=== PATIENT | female | born 1965 | race Two or more races ===

== ENCOUNTER 2024-07-26 05:35 | Emergency (ER) | payer MEDICAID, SELFPAY ==
--- NOTE | 2024-07-26 05:38 | EKG_ITS ---
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
[2024-07-26 05:41] VITALS: BP 166/93; PULSE 65; RESP 18; TEMP 36.9; O2SAT 96
--- NOTE | 2024-07-26 05:52 | XR_ITS ---
Examination: CT brain head without contrast. 2-D sagittal coronal reconstructions Date and time of exam:July 26, 2024 at 0626 hrs. Indications: Generalized weakness beginning 3 days ago CTDI: vol (mGy):50.5 DLP: (mGycm):989 Technique: Multiple CT axial sections of the brain have been obtained, 5 mm slice thickness. Contrast has not been administered. 2-D sagittal, coronal reconstructions have been obtained Low dose protocols were performed. One or more of the following dose reduction techniques were used; automated exposure control, adjustment of the mA and/or KV according to patient size, use of iterative reconstruction technique. Findings: No significant ventricular enlargement. Intra-axial or extra-axial hemorrhage density is not seen. No mass effect or midline shift Basal cisterns are not remarkable. Fourth ventricle is midline. Cranial vault intact. Impression: Negative for acute hemorrhage, mass effect or midline shift Advise clinical correlation follow-up accordingly
--- NOTE | 2024-07-26 05:52 | EDRME_ITS ---
Rapid Medical Screening Exam [facility] Arrival date/time: 07/26/24 05:35 59F with history of HTN, DM, TIA, anxiety/depression and hypothyroidism presents to ED with 3 days of increased generalized weakness and body pains. Patient denies URI symptoms. There have been increased stressors recently in her life related to family. Chief Complaint: Weakness Vital signs: Vital Signs Temperature 98.5 F 07/26/24 05:41 Pulse Rate 65 07/26/24 05:41 Respiratory Rate 18 07/26/24 05:41 Blood Pressure 166/93 H 07/26/24 05:41 Pulse Oximetry (%) 96 07/26/24 05:41 Oxygen Delivery Method Room Air 07/26/24 05:41
[2024-07-26 06:32] LABS: Basophils % (Auto) 1 % (0-2.5); Eosinophils # (Auto) 0.1 Thou/mm3 (0.0-0.5); Eosinophils % (Auto) 2 % (0-10); Hematocrit 38.6 % (36.0-46.0); Hemoglobin 13.6 g/dL (12.0-16.0); Immature Granulocytes % (Auto) 0 % (0-0); Immature Granulocytes Auto 0.02 Thou/mm3 (0.00-0.00); Lymphocytes # (Auto) 1.2 Thou/mm3 (1.0-4.8); Lymphocytes % (Auto) 19 % (10-50); Mean Corpuscular HGB Conc 35.2 g/dl (31.0-37.0); Mean Corpuscular Hemoglobin 31.2 pg (25.0-35.0); Mean Corpuscular Volume 89 fL (80-100); Monocytes # (Auto) 0.5 Thou/mm3 (0.0-0.8); Monocytes % (Auto) 8 % (0-12); Neutrophils # (Auto) 4.5 Thou/mm3 (1.8-7.7); Neutrophils % (Auto) 70 % (37-80); Nucleated Red Blood Cell % 0 /100 WBC (0); Platelet Count 284 Thou/mm3 (140-440); RDW Standard Deviation 41.1 fL (36.4-46.3); Red Blood Count 4.36 Miln/mm3 (4.00-5.20); White Blood Count 6.5 Thou/mm3 (3.6-11.0)
[2024-07-26 06:38] LABS: Collection Type, Urine Clean Catch
[2024-07-26 06:47] LABS: Alanine Aminotransferase 33 U/L (10-49); Albumin, Serum 4.3 gm/dL (3.4-4.8); Albumin/Globulin Ratio 1.7 (1.2-2.2); Alkaline Phosphatase 92 U/L (46-116); Anion Gap 6 (7-16); Aspartate Amino Transferase 24 U/L (0-34); BUN/Creatinine Ratio 10 Ratio (12-20); Bilirubin,Total 0.5 mg/dL (0.3-1.2); Blood Urea Nitrogen 9 mg/dL (9-23); Calcium 8.8 mg/dL (8.3-10.6); Calcium (Corrected) 8.8 mg/dL (8.5-10.1); Chloride 102 mMol/L (98-107); Creatinine (Component) 0.9 mg/dL (0.6-1.3); Globulin 2.6 gm/dL (2.3-3.5); Glucose 159 mg/dL (74-106); Osmolality,Calculated 273 (275-295); Potassium 3.9 mMol/L (3.4-5.1); Sodium 136 mMol/L (136-145); Total Protein 6.9 gm/dL (5.7-8.2); Troponin I < 0.002 ng/mL (0.0-0.045); eGFR > 60 See Note
[2024-07-26 06:56] LABS: Bacteria,Urine Rare; Bilirubin,Urine Negative (Negative); Blood,Urine Negative (Negative); Clarity,Urine Clear (Clear/Hazy); Color,Urine Lt-Yellow (Lt Yel-Yel); Culture Indicated,Urine Not Indicated; Glucose, Urine Negative (Negative); Ketones,Urine Negative (Negative); Leukocyte Esterase,Urine Positive (Negative); Nitrite,Urine Negative (Negative); Protein,Urine Negative (Neg - Trace); RBC,Urine 1 /hpf (0-3); Specific Gravity,Urine 1.005 (1.001-1.035); Squamous Epithelial Cell,Urine 3 /hpf (0-5); Urobilinogen,Urine Negative mg/dL (0.0-1.0); WBC,Urine 2 /hpf (0-5)
[2024-07-26 08:40] VITALS: BP 150/87; PULSE 62; RESP 16; O2SAT 98; BMI 29.0
--- NOTE | 2024-07-26 08:40 | PC.NURSE ---
PT HERE WITH C/O WEAKNESS AND C/O BURNING TO BOTH LOWER LEGS AND FEET
--- NOTE | 2024-07-26 09:59 | PC.NURSE ---
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 dr. han informed
--- NOTE | 2024-07-26 10:01 | PD.EDWEAK ---
ED Weakness RME/HPI General Chief complaint: Weakness Stated complaint: WEAKNESS Time Seen by Provider: 07/26/24 10:14 Arrival date/time: 07/26/24 05:35 RME / HPI RME / HPI Narrative: 07/26/24 05:35 59F with history of HTN, DM, TIA, anxiety/depression and hypothyroidism presents to ED with 3 days of increased generalized weakness and body pains. Patient denies URI symptoms. There have been increased stressors recently in her life related to family. Dr. Crawford?s Main ED Evaluation: 59 y/o female with H/o Hypertension, Diabetes Mellitus Type 2, Hypothyroidism and Thyroid Cancer (stage IA right papillary thyroid cancer in remission), Blood Transfusions, and SH/o Thyroidectomy presents to ED c/o generalized weakness, dizziness and imbalance x 2 days. Reports dizziness improves when closing her eyes. Patient also reports feeling a burning pain that travels up her body from BL feet. States laying down worsens the pain. Denies any nausea. No other modifying factors reported. No other concerns or complaints expressed at this time. Related Data Home Medications ?Medication ?Instructions ?Recorded ?Confirmed Levothyroxine * (SYNTHROID *) 137 mcg PO QDAY #0 tabs 08/19/16 05/05/19 Aspirin Ec * (ECOTRIN *) 81 mg PO QDAY ##0 10/19/16 05/05/19 Losartan Potassium * (COZAAR *) 50 mg PO QDAY #0 tabs 10/19/16 05/05/19 hydrochlorothiazide 12.5 mg 12.5 mg PO QAM #0 caps 10/19/16 05/05/19 capsule (Microzide) metformin 500 mg tablet 500 mg PO QAM #0 tabs 10/19/16 05/05/19 (Glucophage) Previous Rx's ?Medication ?Instructions ?Recorded meloxicam 7.5 mg tablet 7.5 mg PO QDAY #10 tabs 02/10/22 cyclobenzaprine 5 mg tablet 5 mg PO Q8H PRN muscle spasm #14 12/12/22 tabs ibuprofen 800 mg tablet 800 mg PO Q8H PRN pain #20 tabs 12/12/22 Allergies Allergy/AdvReac Type Severity Reaction Status Date / Time No Known Allergies Allergy Verified 02/10/22 07:53 Review of Systems Review of Systems Systems Reviewed: All systems reviewed, normal except as documented Narrative Review of Systems: Gen: No fever, no chills, no weight loss, Positive anxious and picking at nails EYES: No discharge, no visual changes, no pain, no nystagmus HEENT: No ear pain, no congestion, no sore throat PULM: No shortness of breath, no cough, no congestion CV: No chest pain, no dyspnea on exertion, no palpitations GI: No nausea, no vomiting, no diarrhea, no pain, no constipation : No frequency, no urgency, no dysuria Musc/skel: No joint pain, no back pain Skin: No rash Psyc: No hallucinations, no depression Heme/Lymph: No easy bleeding or bruising tendencies Neuro: Positive weakness and imbalance, no headache, Negative Romberg Past Medical History Past Medical History CARDIAC: Positive Hypertension ENDOCRINE: Positive Diabetes Mellitus Type 2, Hypothyroidism and Thyroid Cancer (stage IA right papillary thyroid cancer in remission) OTHER HISTORY: Positive Blood Transfusions Surgical History SURGICAL: Positive Thyroidectomy Social History SMOKING STATUS: Never smoker SUBSTANCE USE: does not use ED Exam Narrative Physical exam: GENERAL APPEARANCE: AxOx4, generally well-appearing, no acute distress. HEENT: NC, AT. MMM. EOMI, clear conjunctiva, oropharynx clear. NECK: Supple without lymphadenopathy. No stiffness or restricted ROM. HEART: Normal rate and regular rhythm, normal S1/S1, no m/r/g LUNGS: CTAB, moving air well. No crackles or wheezes are heard. ABDOMEN: Soft, nontender, nondistended with good bowel sounds heard. BACK: No midline C/T/L spine pain or deformity, No CVAT, no obvious deformity. EXTREMITIES: Without cyanosis, clubbing or edema. MUSCULOSKELETAL: FROM of all major joints, no chest tenderness NEUROLOGICAL: Grossly nonfocal. Alert and oriented, moving all 4 extremities. CN not formally tested but appear grossly intact. Observed to ambulate with normal gait. negative romberg, no nystagmus Skin: Warm and dry without any rash. Course Quality Measures none Orders Category Date Time Status Bedside Blood Glucose NOW Care 07/26/24 05:38 Completed Bedside Influenza A&B Antigen Test NOW Care 07/26/24 05:52 Completed EKG (ED ONLY) *Do not use* NOW Care 07/26/24 05:[address] head/brain wo con Stat Exams 07/26/24 05:52 Completed EKG (ED Only) Stat Exams 07/26/24 05:38 Draft CBC Stat Lab 07/26/24 06:13 Completed CMP [Comprehensive Metabolic Panel] Stat Lab 07/26/24 06:13 Completed Troponin I Stat Lab 07/26/24 06:13 Completed Urinalysis, C/S if Indicated Stat Lab 07/26/24 06:30 Completed Meclizine HCl [Antivert] Med 07/26/24 09:54 Discontinued 50 mg PO X1 ONE Vital Signs Vital signs: Vital Signs Temperature 98.5 F 07/26/24 05:41 Pulse Rate 65 07/26/24 05:41 Respiratory Rate 18 07/26/24 05:41 Blood Pressure 166/93 H 07/26/24 05:41 Pulse Oximetry (%) 96 07/26/24 05:41 Oxygen Delivery Method Room Air 07/26/24 05:41 Procedures -ED EKG Interpretation #1: Date of EK07/26/24 Time of EK:44 Rate: 60 Interpretation: Interpreted by me EKG Impression: Normal sinus rhythm (No STEMI), No ectopy and No ischemic changes Weakness MDM Narrative MDM Narrative:: Scribe Attestation: Mily Cline am scribing for and in the presence of Dr. Crawford. Provider Notation: Although this document has been carefully reviewed, there may still be some phonetic and other typographical errors. These errors are purely grammatical due to imperfections in the software program and should not be construed in any way to compromise the substance of the patient's medical care during this visit. Patient data External records reviewed:: [facility] previous records (Reviewed prior ED visit records. Patient last seen on 12/12/22 for Fall from ground level.) Clinical information provided by:: patient Social determinants that could affect healthcare access:: none Patient has the following chronic illnesses:: Hypertension, Diabetes Mellitus Type 2, Hypothyroidism and Thyroid Cancer (stage IA right papillary thyroid cancer in remission), Blood Transfusions, and SH/o Thyroidectomy How is presenting disease/condition affected by chronic disease/condition?: exacerbated by Evaluation data The following diagnostics were reviewed and interpreted by me:: lab results, radiology exam(s) and EKG tracing(s) Lab and/or radiology exams considered but not ordered:: None Interpretation Summary: RADIOLOGY Patient: TOSHIA ALLEN Record#: [id number] Birthdate: 1965 Age/Sex: 59 / F Location: [facility] Attending Dr: Ordering Physician: Travis Calderon PA-C Date of Service: 07/26/24 Procedure(s): CT head/brain wo con Accession Number(s): [id number] cc: Terri PaganP; Daniele Min MD; Travis Calderon PA-C~ Examination: CT brain head without contrast. 2-D sagittal coronal reconstructions Date and time of exam:July 26, 2024 at 0626 hrs. Indications: Generalized weakness beginning 3 days ago CTDI: vol (mGy):50.5 DLP: (mGycm):989 Technique: Multiple CT axial sections of the brain have been obtained, 5 mm slice thickness. Contrast has not been administered. 2-D sagittal, coronal reconstructions have been obtained Low dose protocols were performed. One or more of the following dose reduction techniques were used; automated exposure control, adjustment of the mA and/or KV according to patient size, use of iterative reconstruction technique. Findings: No significant ventricular enlargement. Intra-axial or extra-axial hemorrhage density is not seen. No mass effect or midline shift Basal cisterns are not remarkable. Fourth ventricle is midline. Cranial vault intact. Impression: Negative for acute hemorrhage, mass effect or midline shift Advise clinical correlation follow-up accordingly Dictated By: Daniele Min MD Signed By: Electronically signed by Daniele Min MD in [place] 07/26/24 3332 Medications / Prescriptions Medications or Prescriptions considered but not ordered:: None Medication administrations:: Medication Administration History Discontinued Medications Meclizine HCl (Meclizine Hcl 25 Mg Tablet) 50 mg PO X1 ONE Stop: 07/26/24 09:55 Last Admin: 07/26/24 10:29 Dose: 50 mg Documented By: [facility] See above if any Consultations Consultation(s) initiated? (list below): No Diagnosis Weakness Differential Diagnosis: hypoglycemia, hypothyroidism and other (Vertigo vs Anxiety) Most likely diagnosis given after review of the tests above:: Vertigo, Anxiety Admission Indicated Admission indicated?: not indicated Admission Request Was there a request for admission?: No Disposition Plan Disposition Plan: Discharge Discharge Attestation Discharge Attestation: The patient and all family members were given an opportunity to ask questions and understood the discharge instructions. Discharge instructions specifically effects, indications for sooner follow up or return to the emergency department, and the expected course of current diagnosis. Patient condition: Stable Discharge Plan Plan Patient Disposition: HOME (Self Care) Prescriptions/Referrals Prescriptions/Med Rec: No Action Levothyroxine * (SYNTHROID *) 112 MCG tablet 137 mcg PO QDAY Qty: 0 Aspirin Ec * (ECOTRIN *) 81 MG TABLET.DR 81 mg PO QDAY Qty: 0 metformin [Glucophage] 500 MG tablet 500 mg PO QAM Qty: 0 hydrochlorothiazide [Microzide] 12.5 MG capsule 12.5 mg PO QAM Qty: 0 Losartan Potassium * (COZAAR *) 50 MG tablet 50 mg PO QDAY Qty: 0 meloxicam 7.5 mg tablet 7.5 mg PO QDAY Qty: 10 0RF cyclobenzaprine 5 mg tablet 5 mg PO Q8H PRN (Reason: muscle spasm) Qty: 14 0RF ibuprofen 800 mg tablet 800 mg PO Q8H PRN (Reason: pain) Qty: 20 0RF Referrals: Terri Pagan FNP [Primary Care Provider] - In 1 week Problem List Clinical Impression: Vertigo, Anxiety Patient/Caregiver Discharge Instructions Education Materials: ED Dizziness, Uncertain Cause Additional Instructions: Puede tj meclizina sin receta seg?n las indicaciones para el mareo. Acuda a pasha gabriella de seguimiento con calderon m?dico de cabecera damien o dos d?as despu?s para pasha nueva evaluaci?n. Puede regresar a urgencias antes si los s?ntomas empeoran o si nota alg?n problema nuevo que le preocupe. Print Language: Persian Stand Alone Forms: Mendy Award Info., Patient Portal Info Letter
--- NOTE | 2024-07-26 10:28 | PC.NURSE ---
pt now wanting to take meclizine
[2024-07-26] MEDS: MECLIZINE HCL 25 MG TABLET 50 MG PO (10:29)
[2024-07-26 10:30] VITALS: PULSE 66; RESP 16; O2SAT 96
== END 2024-07-26 10:30 | disposition home or self-care (01) ==
PROVIDERS: Physician Assistant; Emergency Provider Emergency Medicine; PCP Registered Nurse Community Health
DX: R42 Dizziness and giddiness (principal); F41.9 Anxiety disorder, unspecified; E11.9 Type 2 diabetes mellitus without complications; I10 Essential (primary) hypertension; E03.9 Hypothyroidism, unspecified; Z86.73 Personal history of transient ischemic attack (TIA), and cerebral infarction without residual deficits
CPT/HCPCS: 36415; 70450; 80053; 81001; 84484; 85025; 87400; 93005; 99284; A9270

== ENCOUNTER → 2024-08-24 | Outpatient (BNVA) | payer MEDICAID, SELFPAY | END | disposition home or self-care (01) | PROVIDERS: PCP Family Medicine; Referring Provider Family Medicine; Visit Provider Urology | DX: R30.0 Dysuria (principal); G89.4 Chronic pain syndrome; R10.2 Pelvic and perineal pain; R39.198 Other difficulties with micturition; R33.9 Retention of urine, unspecified; Z87.440 Personal history of urinary (tract) infections; E66.9 Obesity, unspecified; Z68.28 Body mass index [BMI] 28.0-28.9, adult; I10 Essential (primary) hypertension; E11.9 Type 2 diabetes mellitus without complications; E03.9 Hypothyroidism, unspecified; Z85.850 Personal history of malignant neoplasm of thyroid | CPT/HCPCS: 81003; 99212; G0463 ==